=== PATIENT | male | born 1980 | race American Indian/Alaskan Native ===

== ENCOUNTER 2017-09-23 22:02 | Emergency (ER) | payer SELFPAY ==
--- NOTE | 2017-09-24 07:46 | Emergency Department Report ---
Minor Respiratory - HPI Chief Complaint: Sore Throat Stated Complaint: DISCHARGE FROM [facility] Time Seen by Provider: 09/24/17 06:59 Duration: 3 Days Pain Location: Throat Severity: severe Minor Respiratory: Yes Sore Throat (7/10), Yes Able to Tolerate Fluids, No Rhinorrhea (7/10), No Ear Pain, No Cough, No Sick Contacts, No Hemoptysis, No Chest Pain, No Shortness of Breath, No Fever Other History: This is a 37-year-old male who initially he reported that he is having sore throat and swollen and tender. Spitting up thick brown stuff. He says it smells bad. Patient also then reported that he is having penile discharge, dark urine and burning during urination. Patient also reports performing oral sex on his and Thursday. He denies with any STD. Patient to be treated for STD. Pain is worse with swallowing. Report burning on urination. Nothing makes them better . No medication taken. ED Review of Systems ROS: Stated complaint: DISCHARGE FROM [facility] Other details as noted in HPI Constitutional: denies: chills, fever ENT: throat pain. denies: ear pain, dental pain, hearing loss, epistaxis, congestion Respiratory: denies: cough, orthopnea, shortness of breath, SOB with exertion, SOB at rest, stridor, wheezing Cardiovascular: denies: chest pain, palpitations, edema, syncope Gastrointestinal: denies: abdominal pain, nausea, vomiting, diarrhea Genitourinary: dysuria, discharge. denies: urgency, frequency, hematuria, testicular pain, testicular mass Musculoskeletal: denies: back pain, joint swelling, arthralgia, myalgia Skin: denies: rash, lesions Neurological: denies: headache, weakness ED Past Medical Hx - Past Medical History Previous Medical History?: No - Surgical History Past Surgical History?: No - Family History Family history: diabetes, hypertension - Social History Smoking Status: Current Every Day Smoker Substance Use Type: Alcohol - Medications Home Medications: Home Medications Medication Instructions Recorded Confirmed Last Taken Type Ibuprofen [Motrin] 600 mg PO Q8H PRN #12 tablet 09/24/17 Unknown Rx Penicillin V Potassium 500 mg PO Q8H 10 Days #30 tablet 09/24/17 Unknown Rx Minor Respiratory Exam - Exam General: Vital signs noted. No distress. Alert and acting appropriately. This is a 37-year-old male well-nourished well-developed in no acute distress. HEENT: Yes Pharyngeal Erythema, Yes Moist Mucous Membranes, No Pharyngeal Exudates, No Rhinorrhea, No Conjuctival Injection, No Frontal Tenderness, No Maxillary Tenderness Ear: Neither TM Bulge, Neither TM Erythema, Neither EAC Pain, Neither EAC Discharge Neck: Yes Adenopathy, Yes Supple (no C-spine tenderness and full range of motion ) Lungs: Yes Good Air Exchange (CTAB), No Wheezes, No Ronchi, No Stridor, No Cough , No Labored Respirations, No Retractions, No Use of Accessory Muscles, No Other Abnormal Lung Sounds Heart: Yes Regular (tachycardic at 105, S1 and S2. Regular rate and rhythm), No Murmur Abdomen: Yes Normal Bowel Sounds, No Tenderness, No Peritoneal Signs Skin: No Rash, No Edema Neurologic: Alert and oriented, 3, normal gait Musculoskeletal: Unremarkable. No clubbing, cyanosis or edema. Positive pulses all extremities and no neurovascular compromise ED Course Vital Signs 09/23/17 23:16 Temperature 98.1 F Pulse Rate 105 H Respiratory 16 Rate Blood Pressure 137/89 O2 Sat by Pulse 97 Oximetry Vital Signs 09/23/17 09/24/17 09/24/17 23:16 08:57 10:05 Temperature 98.1 F 97.9 F Pulse Rate 105 H 68 72 Respiratory 16 18 Rate Blood Pressure 137/89 Blood Pressure 146/98 [Right] O2 Sat by Pulse 97 Oximetry - Reevaluation(s) Reevaluation #1: 09/24/17 10:08 Patient given Rocephin 250 mg IM and azithromycin 1 g by mouth and tolerated well without any adverse reaction. ED Medical Decision Making - Lab Data Lab Results 09/24/17 Range/Units Unknown Urine Color Yellow (Yellow) Urine Turbidity Hazy (Clear) Urine pH 5.0 (5.0-7.0) Ur Specific [place] 1.028 (1.003-1.030) Urine Protein 30 mg/dl (Negative) mg/dL Urine Glucose (UA) Neg (Negative) mg/dL Urine Ketones Tr (Negative) mg/dL Urine Blood Sm (Negative) Urine Nitrite Neg (Negative) Urine Bilirubin Neg (Negative) Urine Urobilinogen < 2.0 (<2.0) mg/dL Ur Leukocyte Esterase Neg (Negative) Urine WBC (Auto) 1.0 (0.0-6.0) /HPF Urine RBC (Auto) 10.0 (0.0-6.0) /HPF U Epithel Cells (Auto) 1.0 (0-13.0) /HPF Urine Mucus 2+ /HPF - Medical Decision Making ED course This is a 37-year-old male here initially complaining of sore throat that she has red throat and also complaining that he is concerned for STD because he had oral sex and his and that he started having a sore throat, penile discharge , dark yellow urine that is burning. Patient seemed to be treated for STD. Patient was seen and examined by myself. Found to have red throat with anterior cervical density opacity, urinalysis negative for bacteria, nitrites, leukocyte Estrace or white blood cell. He has small amount of blood with trace ketones and 30 protein. Patient and also requested to be treated empirically for STD. I discussed diagnosis and ureters with patient and also treatment plan and he voiced understanding. Patient will be treated for gonorrhea and chlamydia and will be placed on penicillin for acute pharyngitis. A/P 1: Acute pharyngitis findings for erythema oropharynx and anterior cervical lymphadenopathy. Patient will be placed on penicillin for 10 days 2: Empirically treated for STD secondary to penile discharge-patient received Rocephin 250 mg IM and azithromycin 1 g by mouth and instructed on STD precautions over the next 10 days and that he needs to go to health Department in 10 days to get rechecked for STD. I also explained to him that he needs to have his tested for STD. 3: Dysuria-patient and has no signs of urinary tract infection in his urinalysis. Patient educated on safe sex, sexually transmitted disease, medication, follow- up visit at health Department he voiced understanding. Patient discharged home in stable condition with prescription for penicillin, vital signs are stable he's afebrile and is nontoxic in appearance. He is feeling better and he states starts his to get tested at the health Department. He is aware that he needs to follow up with health department in 7- 10 days for repeat STD checks. Critical care attestation.: If time is entered above; I have spent that time in minutes in the direct care of this critically ill patient, excluding procedure time. ED Disposition Clinical Impression: Concern about STD in male without diagnosis, Penile discharge, Dysuria Acute pharyngitis Qualifiers: Pharyngitis/tonsillitis etiology: unspecified etiology Qualified Code(s): J02.9 - Acute pharyngitis, unspecified Disposition: DC-01 TO HOME OR SELFCARE Is pt being admited?: No Does the pt Need Aspirin: No Condition: Stable Instructions: Sexually Transmitted Diseases (ED), Safe Sex (ED), Pharyngitis ( ED), Dysuria (ED) Additional Instructions: practice safe sex Inform your noted that she needs to be tested for STD as urinary treated today in the emergency room Please follow up with the health department in 7-10 days for STD check refrain from having sexual activity over the next 10 days Prescriptions: Ibuprofen [Motrin] 600 mg PO Q8H PRN #12 tablet PRN Reason: Pain Penicillin V Potassium 500 mg PO Q8H 10 Days #30 tablet Referrals: PRIMARY CARE, [Primary Care Provider] - 7-10 days [facility] [Outside] - 7-10 days Forms: Work/School Release Form(ED)
[2017-09-24 08:57] VITALS: BP 146/98
[2017-09-24 09:01] LABS: Bilirubin,Urine NEG (Negative); Blood,Urine SM (Negative); Color,Urine Yellow (Yellow); Mucus,Urine 2+ /HPF; Urobilinogen,Urine < 2.0 mg/dL (<2.0)
[2017-09-24] MEDS ORDERED: ZITHROMAX PO ONE (09:17)
[2017-09-24] MEDS ORDERED: XYLOCAINE 1% MPF 5 mL INFILTRATI ONE (09:17)
[2017-09-24] MEDS ORDERED: ROCEPHIN IM ONE (09:17)
== END 2017-10-08 10:24 | disposition home or self-care (01) ==
LOC: ED 22:02
DX: J02.9 Acute pharyngitis, unspecified (principal); R36.9 Urethral discharge, unspecified; R30.0 Dysuria; F17.200 Nicotine dependence, unspecified, uncomplicated
CPT/HCPCS: 81001; 96372; 99283; J0696

== ENCOUNTER 2017-10-08 15:52 | Emergency (ER) | payer SELFPAY ==
[2017-10-08] MEDS ORDERED: TORADOL IV ONE (16:02)
[2017-10-08] MEDS ORDERED: NACL 0.9% 1000 ML 1,000 ML IV ONE (16:02)
[2017-10-08] MEDS ORDERED: ZOFRAN IV ONE (16:02)
[2017-10-08] MEDS ORDERED: PEPCID IV ONE (16:02)
--- NOTE | 2017-10-08 16:04 | Emergency Department Report ---
Blank Doc - Documentation Documentation: Patient is a 37-year-old male who is presenting with 4 days of nausea vomiting and right upper quadrant pain. Patient denies any fever that objectively does state he has chills occasionally. Patient states he hasn't had a bowel movement in several days. On focused physical exam patient is tender in the right upper quadrant patient will have IV fluids and meds for symptomatic relief and also check labs and ultrasound patient to rule out ileocolic and x-ray the patient to rule out an obstructive pattern.
[2017-10-08 16:20] LABS: Basophils # (Auto) 0.1 K/mm3 (0.0-0.1); Basophils % (Auto) 0.5 % (0.0-1.8); Eosinophils # (Auto) 0.1 K/mm3 (0.0-0.4); Eosinophils % (Auto) 0.8 % (0.0-4.3); Hematocrit 46.8 % (35.5-45.6); Hemoglobin 15.7 gm/dl (11.8-15.2); Lymphocytes # (Auto) 2.4 K/mm3 (1.2-5.4); Lymphocytes % (Auto) 15.1 % (13.4-35.0); Mean Corpuscular HGB Conc 34 % (32-34); Mean Corpuscular Hemoglobin 31 pg (28-32); Mean Corpuscular Volume 93 fl (84-94); Monocytes # (Auto) 1.1 K/mm3 (0.0-0.8); Monocytes % (Auto) 6.7 % (0.0-7.3); Platelet Count 292 K/mm3 (140-440); Red Blood Count 5.06 M/mm3 (3.65-5.03); Red Cell Distribution Width 13.2 % (13.2-15.2)
[2017-10-08 16:42] LABS: Alanine Aminotransferase 19 units/L (7-56); Albumin 4.4 g/dL (3.9-5); BUN/Creatinine Ratio 29; Blood Urea Nitrogen 40 mg/dL (9-20); Calcium 9.9 mg/dL (8.4-10.2); Hemolysis Index 25
--- NOTE | 2017-10-08 17:02 | XRay Report ---
FINAL REPORT PROCEDURE: XR ABD SERIES W CXR 1V TECHNIQUE: Abdominal series complete, including supine and upright AP views of the abdomen and frontal chest. HISTORY: NV with no BM abd pain COMPARISON: No prior studies are available for comparison. FINDINGS: Heart: Normal size. Mediastinum/Vessels: Normal. Lungs/Pleural space: Clear. Bowel gas pattern: Nonobstructive. Moderate amount of stool seen in the right side of the colon also in the rectum. Stool pattern otherwise unremarkable. Masses or calcifications: None. Bony structures: No acute osseous abnormality. Other: No free intraperitoneal air. IMPRESSION: Stool pattern as described. No other abnormalities are seen..
--- NOTE | 2017-10-08 17:37 | Emergency Department Report ---
ED N/V/D HPI - General Chief complaint: Pain General Stated complaint: NAUSEA/VOMITING/DIARRHEA Time Seen by Provider: 10/08/17 15:59 Source: patient Mode of arrival: Ambulatory Limitations: No Limitations - History of Present Illness Initial comments: This is a 37-year-old male who is presenting with 4 days of nausea vomiting and right upper quadrant pain. Patient denies any fever but has chills occasionally. Patient states he hasn't had a bowel movement in several days. 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 He admits to having night sweats without fever. Denies recent exposure to sick contacts or other at home with similar symptoms. Denies nausea or vomiting, fever, shortness of breath, chest pain, cough. MD complaint: nausea, vomiting, abdominal pain -: days(s) (4 days) Associated Abdominal Pain: Yes Location: RUQ Radiation: none Severity: moderate Pain Scale: 5 Quality: cramping Consistency: intermittent Improves with: none Worsens with: none Associated Symptoms: fever/chills, nausea/vomiting. denies: myalgias, chest pain, cough, diaphoresis, headaches, loss of appetite, rash, dysuria, shortness of breath, syncope, weakness - Related Data Previous Rx's Medication Instructions Recorded Last Taken Type Ibuprofen [Motrin] 600 mg PO Q8H PRN #12 tablet 09/24/17 Unknown Rx Penicillin V Potassium 500 mg PO Q8H 10 Days #30 tablet 09/24/17 Unknown Rx Ciprofloxacin HCl [Cipro] 500 mg PO BID 7 Days #14 tablet 10/08/17 Unknown Rx Ondansetron [Zofran Odt] 4 mg PO TID PRN #10 tab.rapdis 10/08/17 Unknown Rx Psyllium Seed (with Sugar) 1 each PO BID #10 packet 10/08/17 Unknown Rx [Metamucil] Allergies Allergy/AdvReac Type Severity Reaction Status Date / Time No Known Allergies Allergy Unverified 09/23/17 23:16 ED Review of Systems ROS: Stated complaint: NAUSEA/VOMITING/DIARRHEA Other details as noted in HPI Constitutional: denies: chills, fever Respiratory: denies: cough, shortness of breath, wheezing Cardiovascular: denies: chest pain, palpitations Gastrointestinal: denies: abdominal pain, nausea, diarrhea ED Past Medical Hx - Past Medical History Previous Medical History?: No Hx Hypertension: No Hx CVA: No Hx Heart Attack/AMI: No Hx Congestive Heart Failure: No Hx Diabetes: No Hx Deep Vein Thrombosis: No Hx Pulmonary Embolism: No Hx GERD: No Hx Liver Disease: No Hx Renal Disease: No Hx of Cancer: No Hx Sickle Cell Disease: No Hx Arthritis: No Hx Headaches / Migraines: No Hx Seizures: No Hx Kidney Stones: No Hx Psychiatric Treatment: No Hx Asthma: No Hx COPD: No Hx Dementia: No Hx HIV: No - Surgical History Past Surgical History?: No Hx Coronary Stent: No Hx Open Heart Surgery: No Hx Pacemaker: No Hx Internal Defibrillator: No Hx Cholecystectomy: No Hx Appendectomy: No Hx Breast Surgery: No - Social History Smoking Status: Never Smoker Substance Use Type: None - Medications Home Medications: Home Medications Medication Instructions Recorded Confirmed Last Taken Type Ibuprofen [Motrin] 600 mg PO Q8H PRN #12 tablet 09/24/17 Unknown Rx Penicillin V Potassium 500 mg PO Q8H 10 Days #30 tablet 09/24/17 Unknown Rx Ciprofloxacin HCl [Cipro] 500 mg PO BID 7 Days #14 tablet 10/08/17 Unknown Rx Ondansetron [Zofran Odt] 4 mg PO TID PRN #10 tab.rapdis 10/08/17 Unknown Rx Psyllium Seed (with Sugar) 1 each PO BID #10 packet 10/08/17 Unknown Rx [Metamucil] ED Physical Exam - General Limitations: No Limitations ED Course Vital Signs 10/08/17 10/08/17 16:01 18:35 Temperature 97.8 F 98.6 F Pulse Rate 110 H 72 Respiratory 18 Rate Blood Pressure 146/87 Blood Pressure 122/39 [Left] O2 Sat by Pulse 99 100 Oximetry ED Medical Decision Making - Lab Data Result diagrams: 10/08/17 16:08 10/08/17 16:08 - Radiology Data Radiology results: report reviewed X-ray of abdomen series with chest x-ray impression: Nonobstructive. Moderate amount of stool seen in the right side of the colon also in the rectum. Stool pattern otherwise unremarkable. Stool pattern as described. No other abnormalities are seen. - Medical Decision Making This is a 37 y.o. male that presents with nausea, vomiting and RUQ pain for 4 days. Patient is stable and was examined by me. Heart rate elevated on arrival. Obtained CMP, CBC, lipase, and XR of abdomen and CXR. Slight dehydration, given 1 L of normal saline bolus, Zofran, Pepcid, and Toradol while in the ER. Nonobstructive. WBC's elevated will start cipro for gastroenteritis. Moderate amount of stool seen in the right side of the colon also in the rectum. Stool pattern otherwise unremarkable. Stool pattern as described. No other abnormalities are seen. Plan to start zofran and cipro for gastritis. Start metimucil for constipation. Discussed plan with patient and agreed to plan. No further questions noted by the patient. Discharged home in stable condition. Follow up with PCP in 2-3 days. Critical care attestation.: If time is entered above; I have spent that time in minutes in the direct care of this critically ill patient, excluding procedure time. ED Disposition Clinical Impression: Gastroenteritis, Constipation by delayed colonic transit Abdominal pain Qualifiers: Abdominal location: right upper quadrant Qualified Code(s): R10.11 - Right upper quadrant pain Disposition: TO HOME OR SELFCARE Is pt being admited?: No Does the pt Need Aspirin: No Condition: Stable Instructions: Gastroenteritis (ED), Acute Nausea and Vomiting (ED) Additional Instructions: Frequent hand washing is important to reduce spread. Prompt disinfection of contaminated surfaces with household chlorine bleach- based accounting officer and washing of soiled clothing and bedding should be advised. If food or water is thought to be contaminated, it should be avoided. Increase fluid intake. Complete full course of antibiotics as prescribed. Avoid drinking alcohol while taking antibiotics and up to 24 hours after completion. Drinks high in sugars such as carbonated soft drinks, fruit juice, and highly sugared liquids should be avoided. Prescriptions: Ciprofloxacin HCl [Cipro] 500 mg PO BID 7 Days #14 tablet Ondansetron [Zofran Odt] 4 mg PO TID PRN #10 tab.rapdis PRN Reason: Nausea And Vomiting Psyllium Seed (with Sugar) [Metamucil] 1 each PO BID #10 packet Referrals: [facility] [Outside] - 3-5 Days [facility] [Outside] - 3-5 Days [facility] [Outside] - 3-5 Days Time of Disposition: 18:42 Print Language: GEORGIAN
--- NOTE | 2017-10-08 18:21 | Ultrasound Report ---
FINAL REPORT PROCEDURE: US ABDOMEN COMPLETE TECHNIQUE: Real-time sonography in multiple planes of the abdomen was performed with image documentation. CPT 08133 HISTORY: RUQ pain COMPARISON: No prior studies are available for comparison. FINDINGS: Liver: Normal size and echotexture with no evidence of cystic or solid mass lesions. Gallbladder: Fluid filled. No gallstones, wall thickening, pericholecystic fluid, or sonographic Andrea's sign. Intrahepatic bile ducts: Normal caliber . Extrahepatic bile ducts: Normal caliber. Common bile duct measures 1.4 millimeters. Pancreas: Visualized portions appear normal.. Aorta: Visualized portions appear normal. Mid and distal abdominal aorta was not visualized. IVC: Visualized portions appear normal. RIGHT kidney: Normal echotexture. No focal renal mass, calculus, or hydronephrosis. Length: 9.2cm. LEFT kidney: Normal echotexture. No focal renal mass, calculus, or hydronephrosis . Length: 10.3cm. Spleen: Normal size and echotexture. No focal lesions. No ascites is visualized. Other: None . IMPRESSION: No acute or focal abnormalities are identified..
[2017-10-08 18:37] VITALS: BP 122/39
== END 2017-10-08 18:56 | disposition home or self-care (01) ==
LOC: ED 15:52
DX: K52.9 Noninfective gastroenteritis and colitis, unspecified (principal); K59.01 Slow transit constipation
CPT/HCPCS: 36415; 74022; 76700; 80053; 83690; 85025; 96361; 96374; 96375; 99284; J1885; J2405; J7030